=== PATIENT | female | born 1960 | race African-American/Black ===

== ENCOUNTER 2017-04-03 16:15 | Inpatient (IN) | payer OTHER ==
[~2017-04-03] VITALS: Ht 160 cm; Wt 92.2 kg
--- NOTE | ~2017-04-03 | S ---
[facility] [place] [address] [place] [address] SURGICAL PATH RPT PROCEDURE Name: MARY SALGUERO Arline Room #: 402-P ADM IN M.R.#: [id number] Admission: 04/03/17 Date of : 58 Discharge: Report #: [id number] Path Case #: [id number] PATHOLOGY REPORT COLLECTION DATE: 04/03/2017 RECEIVED DATE: 04/05/2017 SUBMITTING PHYS: Dr. Giorgio Roberts OTHER PHYS: Dr. Ida Hdz SPECIMEN(S) RECEIVED: A.Colon bx Rule out colitis * * * * * * * * * * * * FINAL DIAGNOSIS: Colon, biopsy: - Active colitis with crypt atrophy. See comment. - Negative for dysplasia and malignancy. COMMENT: These findings could be aircraft sales representative of ischemia. Clinical correlation is recommended. PATHOLOGIST: Ernst Miner M.D. REPORT ELECTRONICALLY SIGNED BY: Ernst Miner M.D. DATE/TIME: 04/08/2017 12:59 * * * * * * * * * * * * GROSS PATHOLOGY: Received in formalin labeled "Mary Salguero, colon BX r/o colitis," are 2 segments of ramos soft tissue measuring 0.7 x 0.8 x 0.2 cm in aggregate dimensions and ranging from 0.2 to 0.2 cm in maximum dimension. The specimen is submitted entirely in cassette A1. (TSD; 04/05/2017) CLINICAL HISTORY: Pre-OP DX: Rectal pain Post-OP DX: Diverticuli INITIAL CPT CODE(S): A; 73983 Professional services performed by [facility] at [facility] [address], [place] [address] Technical services performed by [facility] at [address] [place] [address] [address] [place] [address] SURGICAL PATH RPT PROCEDURE Name: MARY SALGUERO Room #: 402-P [facility] IN .R.#: [id number] Admission: 04/03/17 Date of : 58 Discharge: Report #: [id number] Path Case #: [id number] [place] [address]. [facility] [address] [place] [address] PHONE: [phone] DIRECTOR: Lebron Sánchez M.D. * * * END OF REPORT * * *
--- NOTE | ~2017-04-03 | D ---
[facility] [place] [address] DISCHARGE SUMMARY Name: SANDRITA CANDELARIA Room #: 402-P [facility] IN ..#: [id number] Admission: 04/03/17 Attend Phys: Giorgio Roberts, Discharge: 04/09/17 Date of : 58 Report #: [id number] THIS REPORT FOR: //name// CC: Ida Roberts DATE OF SERVICE: 04/09/2017 The patient was admitted to the hospital on 04/03/2017, discharged from the hospital on 04/09/2017. HISTORY OF PRESENT ILLNESS: The patient is a 56-year-old female with no major health problems, who came to the hospital with abdominal pain. Please refer to admission H and P for details. In brief, the patient was found to have colitis, involving the transverse colon. HOSPITALIZATION COURSE: The patient was hospitalized. Infectious Disease specialist and GI team were consulted. The patient had colonoscopy, that was more consistent with ischemic colitis. The patient had angiography, that showed no evidence of mesenteric artery narrowing. The patient was continued on antibiotics. Her condition started to improve gradually. Currently, the patient feels better. She still has mild abdominal pain, but her food intake is normal. She will be discharged home on oral antibiotics for approximately 10 days. DISCHARGE DIAGNOSES: 1. Colitis. No evidence of mesenteric artery narrowing based on angiography. SECONDARY DIAGNOSES: Includes hypertension, chronic pain. DISCHARGE MEDICATIONS: Please refer to the medication reconciliation list. In addition to her home medications, the patient will be continued on and Flagyl for 10 days. ALLERGIES: THE PATIENT IS ALLERGIC TO QUINOLONES. DISPOSITION: The patient is discharged home. FOLLOWUP PLANS: [facility] [address] [place] [address] DISCHARGE SUMMARY Name: BARISANDRITA Nunn Room #: 402-P [facility] IN .R.#: [id number] Admission: 04/03/17 Attend Phys: Giorgio Roberts DO Discharge: 04/09/17 Date of : 58 Report #: [id number] 1. Follow up with the primary care physician in 1-2 weeks. 2. Follow up in the GI clinic as advised. By: [id number] Trish Daigle MD /nt
--- NOTE | ~2017-04-03 | HC ---
[facility] [place] [address] CONSULTATION Name: SANDRITA CANDELARIA Arline Room #: 314-P [facility] IN ..#: [id number] Admission: 04/03/17 Attend Phys: Giorgio Roberts DO Discharge: Date of : 58 Report #: [id number] THIS REPORT FOR: //name// CC: Ida Roberts DO DATE OF SERVICE: 04/04/2017 PATIENT OF: Dr. Ida Hdz and Dr. Giorgio Roberts. CHIEF COMPLAINT: This is a very pleasant 56-year-old female with a chief complaint of abrupt onset of severe epigastric, left upper and left lower quadrant abdominal pain at approximately 12:00-1:00 a.m. on Saturday morning yesterday. The patient had no warning that this was happening and she was feeling fine prior to this pain development. This pain that began abruptly and then was followed by the passage of bright red blood per rectum, multiple stools. She had some chills. She had some nausea, but never vomited. She has no appetite and her last bloody stool was actually yesterday, so she has had no further bleeding today, but she has ongoing pain in the same pattern. She came to the emergency room for evaluation. A CT scan of the abdomen and pelvis was performed at that time and revealed circumferential colonic mural thickening with mild pericolic mesenteric fat stranding involving the distal transverse colon, the splenic flexure and the entire descending colon. There was also extensive colonic diverticulosis, but the colon mural thickening is more suggestive of a diffuse colitis rather than a diverticulitis, especially in the distribution described. There were small low density liver lesions that were identified. There is mild central intrahepatic biliary ductal dilatation and extrahepatic biliary ductal dilatation, this probably physiologic after a cholecystectomy. There are multiple possible small splenic hemangiomas present as well. PAST MEDICAL HISTORY: Significant for hypertension. PAST SURGICAL HISTORY: Significant for cholecystectomy. She has had a tonsillectomy and adenoidectomy. She had ovarian cyst removed bilaterally, then she had a total abdominal hysterectomy with bilateral salpingo-oophorectomy. She then had spinal fusion of L4-L5 and possibly S1. ALLERGIES: To TETRACYCLINE, ERYTHROMYCIN, and LEVAQUIN. MEDICATIONS: Prior to admission included diltiazem, ibuprofen, lisinopril, oxycodone, triamterene with hydrochlorothiazide, and vitamin D2. [address] [address] CONSULTATION Name: SANDRITA CANDELARIA Room #: 314-P [facility] IN [facility].#: [id number] Admission: 04/03/17 Attend Phys: Giorgio Roberts DO Discharge: Date of : 58 Report #: [id number] SOCIAL HISTORY: She does not smoke. She rarely drinks any alcohol. She has had an autologous blood transfusion for her back surgery. FAMILY HISTORY: Significant for colon cancer in her paternal grandfather. There is no history of celiac disease, Crohn's disease, or ulcerative colitis in her family. REVIEW OF SYSTEMS: She denies any dysphagia, odynophagia, gastroesophageal reflux, hiatal hernia, or peptic ulcer disease. She has had nausea, but no vomiting. Her weight is stable. Her appetite is usually good, but she has lost her appetite since the symptoms began. She denies any hematemesis, hematochezia, or melena until this started. She has had some chills. She has pain as described above starting in the mid epigastric area and radiating to the left upper quadrant and left lower quadrant and to the suprapubic area as well. She denies any jaundice, hepatitis, or pancreatitis. She denies any diarrhea or constipation. PHYSICAL EXAMINATION: GENERAL: Reveals a well-developed, well-nourished 56-year-old -[place] female, in no apparent distress at the time of the examination, she is awake, alert, oriented x4 and cooperative and very pleasant to converse with. HEENT: She is normocephalic and atraumatic and anicteric. HEART: Rate and rhythm are regular with a normal S1 and S2. LUNGS: Clear bilaterally. ABDOMEN: Soft, bowel sounds present in all 4 quadrants. There is no palpable organomegaly or mass. She is diffusely tender from the epigastrium to the left upper quadrant, left lower quadrant, left lumbar area posteriorly and in the suprapubic region, but no rebound or guarding. EXTREMITIES: Warm and dry. No peripheral cyanosis, clubbing, or edema. NEUROLOGIC: She appears grossly intact without any lateralizing signs, but I did not test her extensively neurologically speaking. SIGNIFICANT LABORATORY DATA: Her BMP is normal. Liver enzymes are normal or low. Total protein 6.1, albumin 3.0. Her GFR is 125. Lactic acid level was 0.8 yesterday. White blood cell count was went from 11.7 to 9.2 today, her hemoglobin dropped from 13.1 yesterday to 10.8 today with hydration and blood loss. Indices are normal. RDW is 14.7 and platelet count is 308. Urinalysis shows trace blood. Stool is heme positive. IMPRESSION: 1. Abrupt onset mid epigastric pain, left upper quadrant and left lower quadrant pain as well as left lumbar pain and suprapubic pain early Saturday morning around 1:00 a.m. The pain has really never stopped. The patient began passing copious amounts of hematochezia after the pain began and developed nausea and anorexia. She came to the hospital for further evaluation and pain control. Her only colonoscopy was done at [facility] in [facility] [address] [place] [address] CONSULTATION Name: SANDRITA CANDELARIA Arline Room #: 314-P [facility] IN [facility]#: [id number] Admission: 04/03/17 Attend Phys: Giorgio Roberts DO Discharge: Date of : 58 Report #: [id number] [facility] [place], [place] in March 2014. At that time, she had a 3-mm polyp removed and was noted to have a left-sided diverticulosis. 2. Hypertension. 3. Status post cholecystectomy, removal of bilateral ovarian cysts, total abdominal hysterectomy with bilateral salpingo-oophorectomy, tonsillectomy and adenoidectomy, spinal fusion of L4-L5 and possibly S1. 4. Family history of colon cancer in her father at age 70. RECOMMENDATIONS: As follows: I reviewed her CT from yesterday with Dr. Martinez in interventional radiology. Most of her arteries looked wide open, the inferior mesenteric artery, which is the one we are concerned about could not be seen very well much beyond the origin, so we cannot tell if it is occluded or not. As the patient has ongoing narcotic level pain, I suspect she may be having ongoing ischemia despite the fact that the GI bleeding that she probably had indicated reperfusion or at least partial reperfusion of the affected segment of colon that is the collateral circulation may have not been adequate to completely reperfuse the entire involved segment. Chronic ischemic colitis eventually causes stricture formation and eventually need for surgery at some point to say nothing of the continuous pain. The patient may need a flexible sigmoidoscopy at some point if we do not find a focal narrowing or obstruction of the inferior mesenteric artery. I agree right now with the broad spectrum antibiotics and we would continue them, clear liquid diet can be started this evening. We will repeat her CBC in the morning and monitor vital signs closely. Thank you very much once again for allowing me to participate in her care, Dr. Hdz and Dr. Roberts. <ELECTRONICALLY SIGNED> By: Chrissy Paula DO 04/04/17 2317 [id number] Chrissy Paula DO /nt
--- NOTE | ~2017-04-03 | HC ---
[facility] [place] [place] [address] CONSULTATION Name: SANDRITA CANDELARIA Arline Room #: 314-P [facility] IN M.R.#: [id number] Admission: 04/03/17 Attend Phys: Giorgio Roberts DO Discharge: Date of : 58 Report #: [id number] THIS REPORT FOR: //name// CC: Ida Roberts DATE OF SERVICE: 04/04/2017 ATTENDING PHYSICIAN: Giorgio Roberts DO. REASON FOR CONSULTATION: Abdominal pain -- colitis. HISTORY OF PRESENT ILLNESS: A 56-year-old woman who is admitted through the Emergency Room with 1-day history of abdominal pain and blood per rectum and then drips to the commode. The patient was evaluated through CT scan of abdomen and pelvis that reveals inflammatory changes circumferentially in the descending and mid transverse colon. For this problem, she is started on Zosyn and Flagyl. She is scheduled for an angiogram today. ALLERGIES: ERYTHROMYCIN, LEVOFLOXACIN, TETRACYCLINE. MEDICATIONS: The patient is currently on treatment with hydromorphone 1 mg IV q.4h. p.r.n., metronidazole 500 mg IV every 8 hours, Zosyn 3.375 grams IV every 6 hours, normal saline 1000 mL IV every 8 hours. PAST MEDICAL HISTORY: Hypertension, on Dyazide. Previous cholecystectomy, tonsillectomy, history of salpingo-oophorectomy and spinal fusion L4-L5. SOCIAL HISTORY: , 2 sons. No tobacco. Rarely uses alcohol. REVIEW OF SYSTEMS: Essentially noncontributory besides the abdominal pain and lower gastrointestinal bleeding. PHYSICAL EXAMINATION: GENERAL: This is a well-developed woman, not toxic looking, no distress. VITAL SIGNS: Temperature 97.5, pulse 71, respirations 19, BP 106/65, weight 189 pounds, height 5 feet 3 inches. HEENMT: Within range. NECK: Supple. No thyromegaly or lymphadenopathy. BREASTS: Deferred. LUNGS: Clear to auscultation. HEART: S1, S2. No gallop or murmur. ABDOMEN: Tenderness over the left colonic yen, no palpable masses or megaly. PELVIC AND RECTAL: Deferred. EXTREMITIES: Normal. NEUROLOGIC: Grossly within normal limits. [facility] [address] [place] [address] CONSULTATION Name: SANDRITA CANDELARIA Arline Room #: 314-P [facility] IN [facility].#: [id number] Admission: 04/03/17 Attend Phys: Giorgio Roberts, DO Discharge: Date of : 58 Report #: [id number] LABORATORY DATA: Sodium 137, potassium 3.5, CO2 of 29, BUN 7, creatinine 0.6, albumin down to 3 g/dL, on admission 3.9 g/dL, lactic acid normal yesterday. The white blood cell count 11,700 on admission, down to 9200 today; the hemoglobin 13.1 gram on admission, down to 10.8 g/dL now, platelets normal. White blood cell count differential revealed 82% segmented neutrophils, down to 65% neutrophils. Stool positive for occult blood. Urinalysis revealed trace blood, otherwise negative. Blood cultures negative. RADIOLOGY EVALUATION: The CT scan of the abdomen and pelvis revealed findings compatible with colitis of the distal transverse colon, splenic flexure, descending colon as well as colonic diverticulosis, findings most likely compatible with ischemic colitis since the patient has not used antibiotics of lately. Multiple small splenic hemangiomas noted as well. ASSESSMENT: 1. Possible ischemic colitis. 2. Gastrointestinal bleeding secondary to above. 3. Hypertension. 4. Splenic hemangiomas. SUGGESTIONS: Recommend proceed with angiogram. Continue coverage with Zosyn and Flagyl, excellent coverage for possibility of ischemic colitis. Discussed the situation with Dr. Giorgio Roberts. Dr. Roberts, thank you for requesting my suggestions in the care of your patient. <ELECTRONICALLY SIGNED> By: Joey Knowles MD 04/05/17 1243 1341 [id number] Joey Knowles MD /nt
[2017-04-03 16:17] VITALS: BP 142/76
[2017-04-03] MEDS ORDERED: MAXZIDE-25 MG1 EACH PO (16:21)
[2017-04-03] MEDS ORDERED: LISINOPRIL40 MG PO (16:21)
[2017-04-03] MEDS ORDERED: DILTIAZEM HCL90 MG PO (16:21)
[2017-04-03] MEDS ORDERED: ENDOCET 10-3251 EACH PO (16:22)
[2017-04-03 16:59] LABS: ABSOLUTE NEUTROPHILS 9.6 thou/uL (1.4-8.2); BASOPHILS 0.5 % (0.0-2.0); EOSINOPHILS 0.1 % (0.0-3.0); HEMATOCRIT 39.7 % (37.0-47.0); HEMOGLOBIN 13.1 gm/dL (12.0-15.0); LYMPHOCYTES 12.3 % (24.0-44.0); MCH 27.3 pg (26.0-34.0); MCHC 33.1 g/dL (28.0-37.0); MCV 82.6 fL (80.0-100.0); PLATELET COUNT 365 thou/uL (150-400); POLYS 82.1 % (36.0-66.0); RDW 14.6 % (10.5-14.5); WBC 11.7 thou/uL (4.0-11.0)
[2017-04-03 17:00] LABS: MANUAL DIFF NO
[2017-04-03 17:09] LABS: CALCIUM 9.5 mg/dL (8.5-10.1); CREATININE 0.5 mg/dL (0.6-1.0); POTASSIUM 3.9 mmol/L (3.5-5.1)
[2017-04-03 17:16] LABS: ALBUMIN 3.9 g/dL (3.4-5.0); TOTAL BILIRUBIN 0.6 mg/dL (<0.1-1.0); TOTAL PROTEIN 7.3 g/dL (6.4-8.2)
[2017-04-03 19:36] LABS: URINE BILIRUBIN NEGATIVE (Negative); URINE BLOOD TRACE (Negative); URINE COLOR YELLOW; URINE GLUCOSE-RANDOM* NEGATIVE (Negative); URINE KETONES NEGATIVE (Negative); URINE LEUKOCYTES-REFLEX NEGATIVE (Negative); URINE PROTEIN (DIPSTICK) NEGATIVE (Negative); URINE SPECIFIC GRAVITY <= 1.005 (1.003-1.035); URINE UROBILINOGEN 0.2 E.U./dl (0.2-1.0)
[2017-04-03 20:08] VITALS: BP 122/90
[2017-04-03 20:48] VITALS: BP 128/90
[2017-04-03 20:50] VITALS: BP 131/70
[2017-04-03] MEDS ORDERED: IBUPROFEN 800800 M1 (21:55)
[2017-04-03] MEDS ORDERED: VITAMIN D250000 UNIT PO (21:58)
[2017-04-04] VITALS (7 sets, daily range): BP systolic 96–123; BP diastolic 55–65
[2017-04-04 06:03] LABS: WBC 9.2 thou/uL (4.0-11.0)
[2017-04-04 06:04] LABS: BASOPHILS 0.3 % (0.0-2.0); EOSINOPHILS 0.9 % (0.0-3.0); HEMATOCRIT 32.3 % (37.0-47.0); LYMPHOCYTES 25.8 % (24.0-44.0); MCH 27.6 pg (26.0-34.0); MCHC 33.3 g/dL (28.0-37.0); MCV 82.8 fL (80.0-100.0); MONOCYTES 7.2 % (1.0-8.0); PLATELET COUNT 308 thou/uL (150-400); POLYS 65.8 % (36.0-66.0); RDW 14.7 % (10.5-14.5)
[2017-04-04 06:06] LABS: HEMOGLOBIN 10.8 gm/dL (12.0-15.0)
[2017-04-04 06:07] LABS: MANUAL DIFF NO
[2017-04-04 06:13] LABS: CALCIUM 8.3 mg/dL (8.5-10.1); CREATININE 0.6 mg/dL (0.6-1.0); MAGNESIUM 1.8 mg/dL (1.8-2.4); POTASSIUM 3.5 mmol/L (3.5-5.1); TOTAL BILIRUBIN 0.5 mg/dL (<0.1-1.0); TOTAL PROTEIN 6.1 g/dL (6.4-8.2)
[2017-04-04 12:44] LABS: APTT 25.8 Seconds (24.5-32.8); INR 1.1; PROTIME 11.4 Seconds (9.3-11.4)
[2017-04-05 03:43] LABS: ALBUMIN 2.9 g/dL (3.4-5.0); CALCIUM 7.9 mg/dL (8.5-10.1); CREATININE 0.6 mg/dL (0.6-1.0); MAGNESIUM 2.1 mg/dL (1.8-2.4); POTASSIUM 3.3 mmol/L (3.5-5.1); TOTAL BILIRUBIN 0.5 mg/dL (<0.1-1.0); TOTAL PROTEIN 5.4 g/dL (6.4-8.2)
[2017-04-05 04:04] LABS: ABSOLUTE NEUTROPHILS 5.7 thou/uL (1.4-8.2); BASOPHILS 0.2 % (0.0-2.0); EOSINOPHILS 0.5 % (0.0-3.0); HEMATOCRIT 30.9 % (37.0-47.0); HEMOGLOBIN 10.2 gm/dL (12.0-15.0); LYMPHOCYTES 24.3 % (24.0-44.0); MCH 27.4 pg (26.0-34.0); MCHC 32.9 g/dL (28.0-37.0); MCV 83.3 fL (80.0-100.0); MONOCYTES 7.7 % (1.0-8.0); OBSERVED RETIC COUNT 1.16 % (0.6-2.6); PLATELET COUNT 269 thou/uL (150-400); POLYS 67.3 % (36.0-66.0); RBC 3.71 mil/uL (4.20-5.00); RDW 14.2 % (10.5-14.5); WBC 8.4 thou/uL (4.0-11.0)
[2017-04-05 04:20] VITALS: BP 104/44
[2017-04-05 04:31] LABS: MANUAL DIFF NO
[2017-04-05 08:37] VITALS: BP 125/57
[2017-04-05 16:26] VITALS: BP 117/53
[2017-04-05 19:26] VITALS: BP 125/71
[2017-04-06 04:10] VITALS: BP 117/56
[2017-04-06 07:19] LABS: HEMATOCRIT 29.5 % (37.0-47.0); MCH 27.6 pg (26.0-34.0); MCV 81.3 fL (80.0-100.0); RBC 3.62 mil/uL (4.20-5.00); RDW 14.1 % (10.5-14.5); WBC 9.7 thou/uL (4.0-11.0)
[2017-04-06 07:56] VITALS: BP 144/72
[2017-04-06 11:57] LABS: BASOPHILS 0.6 % (0.0-2.0); EOSINOPHILS 0.4 % (0.0-3.0); HEMATOCRIT 30.7 % (37.0-47.0); HEMOGLOBIN 10.3 gm/dL (12.0-15.0); LYMPHOCYTES 17.4 % (24.0-44.0); MCH 27.4 pg (26.0-34.0); MCHC 33.4 g/dL (28.0-37.0); MONOCYTES 6.9 % (1.0-8.0); PLATELET COUNT 282 thou/uL (150-400); POLYS 74.7 % (36.0-66.0); RBC 3.74 mil/uL (4.20-5.00); RDW 13.9 % (10.5-14.5); WBC 9.4 thou/uL (4.0-11.0)
[2017-04-06 11:58] LABS: MANUAL DIFF NO
[2017-04-06 12:07] LABS: CALCIUM 8.3 mg/dL (8.5-10.1); CREATININE 0.5 mg/dL (0.6-1.0); POTASSIUM 3.1 mmol/L (3.5-5.1)
[2017-04-06 17:39] VITALS: BP 122/67
[2017-04-06 19:10] VITALS: BP 143/72
[2017-04-07 04:17] VITALS: BP 133/75
[2017-04-07 05:58] LABS: ABSOLUTE NEUTROPHILS 6.1 thou/uL (1.4-8.2); BASOPHILS 0.4 % (0.0-2.0); EOSINOPHILS 1.2 % (0.0-3.0); HEMATOCRIT 29.8 % (37.0-47.0); LYMPHOCYTES 26.8 % (24.0-44.0); MCH 27.4 pg (26.0-34.0); MCHC 33.4 g/dL (28.0-37.0); MONOCYTES 7.9 % (1.0-8.0); PLATELET COUNT 271 thou/uL (150-400); POLYS 63.7 % (36.0-66.0); RBC 3.63 mil/uL (4.20-5.00); RDW 13.9 % (10.5-14.5); WBC 9.5 thou/uL (4.0-11.0)
[2017-04-07 06:08] LABS: CALCIUM 8.3 mg/dL (8.5-10.1); CREATININE 0.5 mg/dL (0.6-1.0); POTASSIUM 3.2 mmol/L (3.5-5.1)
[2017-04-07 06:11] LABS: MANUAL DIFF NO
[2017-04-07 09:15] VITALS: BP 141/75
[2017-04-07 16:14] VITALS: BP 151/74
[2017-04-07 19:48] VITALS: BP 137/67
[2017-04-08 04:13] VITALS: BP 148/72
[2017-04-08 05:26] LABS: ABSOLUTE NEUTROPHILS 9.9 thou/uL (1.4-8.2); BASOPHILS 0.3 % (0.0-2.0); EOSINOPHILS 0.9 % (0.0-3.0); HEMATOCRIT 31.9 % (37.0-47.0); HEMOGLOBIN 10.3 gm/dL (12.0-15.0); LYMPHOCYTES 16.6 % (24.0-44.0); MCH 26.9 pg (26.0-34.0); MCHC 32.4 g/dL (28.0-37.0); MONOCYTES 6.9 % (1.0-8.0); PLATELET COUNT 304 thou/uL (150-400); POLYS 75.3 % (36.0-66.0); RBC 3.85 mil/uL (4.20-5.00); RDW 14.4 % (10.5-14.5); WBC 13.2 thou/uL (4.0-11.0)
[2017-04-08 05:28] LABS: MANUAL DIFF NO
[2017-04-08 05:47] LABS: CALCIUM 8.4 mg/dL (8.5-10.1); CREATININE 0.6 mg/dL (0.6-1.0); POTASSIUM 3.2 mmol/L (3.5-5.1)
[2017-04-08 07:20] VITALS: BP 129/62
[2017-04-08 15:15] VITALS: BP 150/73
[2017-04-08 20:14] VITALS: BP 162/79
[2017-04-09 04:23] VITALS: BP 166/81
[2017-04-09 06:32] LABS: ABSOLUTE NEUTROPHILS 7.1 thou/uL (1.4-8.2); BASOPHILS 0.5 % (0.0-2.0); EOSINOPHILS 1.6 % (0.0-3.0); HEMATOCRIT 30.5 % (37.0-47.0); HEMOGLOBIN 9.9 gm/dL (12.0-15.0); LYMPHOCYTES 22.4 % (24.0-44.0); MCH 27.1 pg (26.0-34.0); MCHC 32.6 g/dL (28.0-37.0); PLATELET COUNT 300 thou/uL (150-400); POLYS 68.5 % (36.0-66.0); RBC 3.67 mil/uL (4.20-5.00); RDW 14.4 % (10.5-14.5); WBC 10.3 thou/uL (4.0-11.0)
[2017-04-09 06:34] LABS: MANUAL DIFF NO
[2017-04-09 06:44] LABS: CALCIUM 8.3 mg/dL (8.5-10.1); CREATININE 0.6 mg/dL (0.6-1.0); MAGNESIUM 1.6 mg/dL (1.8-2.4); POTASSIUM 3.6 mmol/L (3.5-5.1)
[2017-04-09 08:57] VITALS: BP 152/84
[2017-04-09 11:02] VITALS: BP 133/76
[2017-04-09] MEDS ORDERED: FLAGYL500 MG PO (11:42)
[2017-04-09] MEDS ORDERED: CEFPODOXIME PR200 M1 PO (11:42)
[2017-04-09] MEDS ORDERED: BENTYL 10 MG CA10 M1 PO (11:42)
[2017-04-09 14:29] VITALS: BP 133/76
[2017-04-09 15:54] VITALS: BP 133/76
== END 2017-04-09 15:30 | disposition home or self-care (01) | DRG 378 ==
LOC: ER 16:15 → 3N 18:34 → EROBS 18:34 → 3N 20:49 → 4N 04-06 17:51 → ENTRNSPT 04-09 15:22 → EDTRNSPTSTS 04-09 15:24 → 4N 04-09 15:30
PROVIDERS: Hospitalist; Internal Medicine Endocrinology, Diabetes & Metabolism; Internal Medicine Geriatric Medicine; Nurse Practitioner; Nurse Practitioner Family; Physician Assistant; Radiology Diagnostic Radiology
PROC: B31N1ZZ Fluoroscopy of Other Upper Arteries using Low Osmolar Contrast (ICD-10-PCS; principal; 2017-04-04)
PROC: 0DBE8ZX Excision of Large Intestine, Via Natural or Artificial Opening Endoscopic, Diagnostic (ICD-10-PCS; 2017-04-05)
DX: K92.2 Gastrointestinal hemorrhage, unspecified (principal); K55.9 Vascular disorder of intestine, unspecified; I10 Essential (primary) hypertension; G89.29 Other chronic pain; M54.9 Dorsalgia, unspecified; K60.2 Anal fissure, unspecified; D18.00 Hemangioma unspecified site; D64.9 Anemia, unspecified; K64.8 Other hemorrhoids; K57.90 Diverticulosis of intestine, part unspecified, without perforation or abscess without bleeding; E87.6 Hypokalemia; Z88.1 Allergy status to other antibiotic agents; Z90.49 Acquired absence of other specified parts of digestive tract; Z90.710 Acquired absence of both cervix and uterus; Z90.722 Acquired absence of ovaries, bilateral; Z80.0 Family history of malignant neoplasm of digestive organs; Z83.79 Family history of other diseases of the digestive system; Z98.1 Arthrodesis status
CPT/HCPCS: 10096; 10790; 62110; 62900; 70005